=== PATIENT | male | born 2000 | race Caucasian/White ===

== ENCOUNTER 2018-01-02 13:48 | Emergency (ER) | payer OTHER ==
[~2018-01-02] VITALS: Ht 180.3 cm; Wt 59.0 kg
[2018-01-02] MEDS ORDERED: PREG200C PO (14:11)
[2018-01-02] MEDS ORDERED: prednisone PO (14:13)
[2018-01-02 15:57] LABS: BASOPHILS # (AUTO) 0.03 x10^3/uL (0-0.3); BASOPHILS % (AUTO) 0 % (0-1); EOSINOPHILS # (AUTO) 0.07 x10^3/uL (0-0.8); EOSINOPHILS % (AUTO) 1 % (1-7); LYMPHOCYTES # (AUTO) 1.33 x10^3/uL (1-6.1); LYMPHOCYTES % (AUTO) 11 % (22-44); MD NO; MEAN CORPUSCULAR HEMOGLOBIN 30.4 pg (27.5-34.5); MEAN CORPUSCULAR HGB CONC 33.7 g/dL (33.2-36.2); MEAN CORPUSCULAR VOLUME 90.1 fL (81-97); MEAN PLATELET VOLUME 8.3 fL (7.4-10.4); MONOCYTES # (AUTO) 0.44 x10^3/uL (0-1.4); MONOCYTES % (AUTO) 4 % (2-9); NEUTROPHILS # (AUTO) 10.32 x10^3/uL (1.8-8.0); NEUTROPHILS % (AUTO) 85 % (42-75); PLATELET COUNT 249 x10^3/uL (130-400); RED BLOOD COUNT 5.46 x10^6/uL (4.38-5.82); RED CELL DISTRIBUTION WIDTH 15.3 % (9.4-14.8)
[2018-01-02 15:58] LABS: ANION GAP 7 mmol/L (5-15); CHLORIDE 106 mmol/L (98-107)
[2018-01-02] MEDS ORDERED: IBUPROFEN 200 MG TABLET PO ONE (16:00)
[2018-01-02] MEDS ORDERED: IBUPROFEN 200 MG TABLET ONE (16:00)
[2018-01-02 16:54] VITALS: BP 135/100
== END 2018-01-02 17:20 | disposition home or self-care (01) ==
LOC: ED 17:00
DX: G40.409 Other generalized epilepsy and epileptic syndromes, not intractable, without status epilepticus (principal); G89.29 Other chronic pain; M54.9 Dorsalgia, unspecified
CPT/HCPCS: 36415; 70450; 71046; 80048; 83735; 85025; 93005; 99285